=== PATIENT | male | born 1985 | race Caucasian/White ===

== ENCOUNTER 2020-09-17 13:34 | Outpatient (REF) | payer BC, SELFPAY | END 2020-09-17 13:35 | disposition home or self-care (01) | LOC: HO.LAB 13:34 | PROVIDERS: Visit Provider Internal Medicine | DX: Z20.822 Contact with and (suspected) exposure to COVID-19 (principal) | CPT/HCPCS: 36415; C9803; U0003 ==

== ENCOUNTER 2020-09-22 13:26 | Outpatient (REF) | payer BC, SELFPAY | END 2020-09-22 13:27 | disposition home or self-care (01) | LOC: HO.LAB 13:26 | PROVIDERS: Visit Provider Internal Medicine | DX: Z20.822 Contact with and (suspected) exposure to COVID-19 (principal) | CPT/HCPCS: 36415; C9803; U0003 ==